=== PATIENT | male | born 1970 | race Hispanic/Latino ===

== ENCOUNTER 2016-10-07 11:55 | Emergency (ER) | payer BC, OTHER ==
[2016-10-07 11:59] VITALS: BP 134/82; PULSE 82; RESP 18; TEMP 98.5; O2SAT 100
[2016-10-07] MEDS ORDERED: Povidone Iodine Topical 10% Sol ONE (12:25)
[2016-10-07] MEDS ORDERED: Lidocaine 1% Inj (20ml) IJ ONE (12:26)
--- NOTE | 2016-10-07 12:31 | ED PDOC ---
Upper Extremity Pain/Injury Time Seen by Provider: 10/07/16 12:10 Chief Complaint (Nursing): Upper Extremity Problem/Injury Chief Complaint (Provider): Upper Extremity Injury History Per: Patient History/Exam Limitations: no limitations Onset/Duration Of Symptoms: Hrs Current Symptoms Are (Timing): Still Present Severity: Moderate Additional Complaint(s): Eric Cain is a 46 year old male, with no pertinent past medical history, who presents to the emergency department for the evaluation of an upper extremity injury to his left forearm, that the patient experienced a couple of hours prior to arrival. Patient reports cutting his left forearm on a fence while at work. Denies numbness or tingling. Of note, patient's tetanus vaccination is up to date. PMD: Caleb Oseguera Past Medical History Reviewed: Historical Data, Nursing Documentation, Vital Signs Vital Signs: Last Vital Signs Temp 98.5 F 10/07/16 11:58 Pulse 82 10/07/16 11:58 Resp 18 10/07/16 11:58 BP 134/82 10/07/16 11:58 Pulse Ox 100 10/07/16 11:58 - Medical History Other PMH: Leukemia - Surgical History Surgical History: No Surg Hx - Family History Family History: States: Unknown Family Hx - Social History Current smoker - smoking cessation education provided: No Ex-Smoker (has not smoked in the last 12 months): No Alcohol: None Drugs: Denies - Immunization History Hx Tetanus Toxoid Vaccination: Yes - Home Medications Home Medications: Ambulatory Orders Medication Instructions Recorded Clindamycin [Cleocin] 300 mg PO Q8 #9 cap 10/07/16 - Allergies Allergies/Adverse Reactions: Allergies Allergy/AdvReac Type Severity Reaction Status Date / Time Penicillins Allergy RASH Verified 10/07/16 11:57 Review of Systems ROS Statement: Except As Marked, All Systems Reviewed And Found Negative Musculoskeletal: Positive for: Arm Pain (left forearm) Neurological: Negative for: Numbness, Other (tingling) Physical Exam - Reviewed Nursing Documentation Reviewed: Yes Vital Signs Reviewed: Yes - Physical Exam Appears: Positive for: Non-toxic, No Acute Distress Pulses-Radial (L): 2+ Extremity: Positive for: Normal ROM (full range of motion, active left wrist), Capillary Refill (less than two seconds), Other (2 cm linear laceration, volar surface of left forearm w/out active bleeding) Neurologic/Psych: Positive for: Alert, Oriented - ECG O2 Sat by Pulse Oximetry: 100 (RA) Pulse Ox Interpretation: Normal Medical Decision Making Medical Decision Makin:10 Initial Impression: Forearm Laceration Initial Plan: * Lidocaine 1% 3ml IJ * Reevaluation Scribe Attestation: Documented by Adam Uribe, acting as a scribe for JOSEPH Archer. Provider Scribe Attestation: All medical record entries made by the Scribe were at my direction and personally dictated by me. I have reviewed the chart and agree that the record accurately reflects my personal performance of the history, physical exam, medical decision making, and the department course for this patient. I have also personally directed, reviewed, and agree with the discharge instructions and disposition. Procedures - Time-Out Type of Procedure: Laceration repair Site of Procedure: L wrist Correct Patient: Yes Correct Procedure: Yes Correct Site Marked: Yes PA/Tech: Jennifer - Laceration/Wound Repair Laceration repair Wound Length (cm): 2.5 Wound's Depth, Shape: superficial, linear, flap Wound Explored: clean Irrigated w/ Saline (ccs): 300 Betadine Prep?: Yes Anesthesia: 1% Lidocaine Volume Anesthetic (ccs): 4 Wound Debrided: minimal Wound Repaired With: Sutures Suture Size/Type: 4:0, proline Number of Sutures: 9 Layer Closure?: No Wound Complexity: Simple Disposition - Clinical Impression Clinical Impression: Laceration of wrist - Patient ED Disposition Is Patient to be Admitted: No - Disposition Disposition: Routine/Home Disposition Time: 13:37 Condition: STABLE Additional Instructions: Suture removal in 10 days. Prescriptions: Clindamycin [Cleocin] 300 mg PO Q8 #9 cap Instructions: Care For Your Stitches (ED) Print Language: [place]
== END 2016-10-07 13:54 | disposition home or self-care (01) ==
LOC: H.ER 11:55
DX: S61.512A Laceration without foreign body of left wrist, initial encounter (principal); W22.8XXA Striking against or struck by other objects, initial encounter; Y99.0 Civilian activity done for income or pay; Z87.891 Personal history of nicotine dependence; Z88.0 Allergy status to penicillin